=== PATIENT | female | born 1975 | race Hispanic/Latino ===

== ENCOUNTER 2019-12-23 04:34 | Emergency (ER) | payer MEDICARE, OTHER ==
[2019-12-23 05:57] LABS: Hematocrit 35.6 % (30.3-42.9); Hemoglobin 12.2 gm/dl (10.1-14.3); Mean Corpuscular HGB Conc 34 % (30-34); Mean Corpuscular Volume 89 fl (79-97); Platelet Count 269 K/mm3 (140-440); Red Blood Count 3.99 M/mm3 (3.65-5.03); Red Cell Distribution Width 14.3 % (13.2-15.2)
[2019-12-23 06:14] LABS: BUN/Creatinine Ratio 11; Blood Urea Nitrogen 8 mg/dL (7-17); Calcium 8.6 mg/dL (8.4-10.2); Hemolysis Index 5
[2019-12-23 07:03] LABS: Anisocytosis Few; Basophils % (Manual) 0 % (0.0-1.8); Platelet Estimate Consistent w Auto; Schistocytes Rare; Total Cells Counted 100
[2019-12-23 08:08] LABS: Bilirubin,Urine NEG (Negative); Blood,Urine NEG (Negative); Color,Urine Yellow (Yellow); Mucus,Urine 3+ /HPF; Protein,Urine <15 mg/dL mg/dL (Negative)
[2019-12-23 08:09] LABS: HCG Qualitative,Urine Negative (Negative)
[2019-12-23 08:14] LABS: Amphetamine Screen,Urine PRESUMPTIVE NEGATIVE; Benzodiazepines Screen,Urine PRESUMPTIVE NEGATIVE; Cannabinoid Screen,Urine PRESUMPTIVE NEGATIVE; Cocaine Screen,Urine PRESUMPTIVE NEGATIVE; Methadone Screen,Urine PRESUMPTIVE NEGATIVE; Opiate Screen,Urine PRESUMPTIVE NEGATIVE
[2019-12-23 08:47] VITALS: BP 112/67
== END 2019-12-23 12:42 | disposition home or self-care (01) ==
LOC: ED 04:34
DX: F41.0 Panic disorder [episodic paroxysmal anxiety] (principal); F43.10 Post-traumatic stress disorder, unspecified; F20.9 Schizophrenia, unspecified; F31.9 Bipolar disorder, unspecified; F17.200 Nicotine dependence, unspecified, uncomplicated
CPT/HCPCS: 36415; 80048; 80307; 80320; 81001; 81025; 85007; 85025; 99284; G0480

== ENCOUNTER 2020-01-10 18:56 | Emergency (ER) | payer SELFPAY ==
[2020-01-10] MEDS ORDERED: ZIPRASIDONE MESYLATE 20 MG VIAL IM ONE ×3 (18:58→20:35)
[2020-01-10] MEDS ORDERED: WATER FOR INJ Sterile (PF) 10 ML ONE (18:59)
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
[2020-01-10 20:41] LABS: Basophils # (Auto) 0.1 K/mm3 (0.0-0.1); Basophils % (Auto) 0.8 % (0.0-1.8); Eosinophils # (Auto) 0.2 K/mm3 (0.0-0.4); Eosinophils % (Auto) 2.8 % (0.0-4.3); Hematocrit 38.9 % (30.3-42.9); Hemoglobin 12.7 gm/dl (10.1-14.3); Lymphocytes # (Auto) 1.7 K/mm3 (1.2-5.4); Lymphocytes % (Auto) 26.2 % (13.4-35.0); Mean Corpuscular HGB Conc 33 % (30-34); Mean Corpuscular Volume 91 fl (79-97); Monocytes # (Auto) 0.7 K/mm3 (0.0-0.8); Monocytes % (Auto) 11.2 % (0.0-7.3); Platelet Count 229 K/mm3 (140-440); Red Blood Count 4.29 M/mm3 (3.65-5.03); Red Cell Distribution Width 13.6 % (13.2-15.2)
[2020-01-10 21:00] LABS: BUN/Creatinine Ratio 20; Blood Urea Nitrogen 14 mg/dL (7-17); Calcium 8.7 mg/dL (8.4-10.2); Hemolysis Index 10
[2020-01-10 21:01] LABS: Bacteria,Urine 1+ /HPF (Negative); Bilirubin,Urine NEG (Negative); Blood,Urine NEG (Negative); Color,Urine Yellow (Yellow); Mucus,Urine 3+ /HPF; Protein,Urine <15 mg/dL mg/dL (Negative); Urobilinogen,Urine < 2.0 mg/dL (<2.0)
[2020-01-10 21:04] LABS: Benzodiazepines Screen,Urine PRESUMPTIVE NEGATIVE; Cocaine Screen,Urine PRESUMPTIVE NEGATIVE; Methadone Screen,Urine PRESUMPTIVE NEGATIVE; Opiate Screen,Urine PRESUMPTIVE NEGATIVE
[2020-01-10 21:16] LABS: Amphetamine Screen,Urine PRESUMPTIVE POSITIVE; Cannabinoid Screen,Urine PRESUMPTIVE POSITIVE
[2020-01-11] MEDS ORDERED: WATER FOR INJ Sterile (PF) 10 ML ONE ×2 (00:39→15:24)
[2020-01-11] MEDS: ZIPRASIDONE MESYLATE 20 MG VIAL IM PRN ×2 (00:46→07:06)
[2020-01-11] MEDS ORDERED: ZIPRASIDONE MESYLATE 20 MG VIAL IM ONE ×2 (07:02→15:19)
[2020-01-11] MEDS ORDERED: diphenhydrAMINE 50 MG/ML VIAL IM PRN ×2 (12:43→23:53)
[2020-01-11] MEDS ORDERED: LORazepam 2 MG/ML VIAL IM PRN (23:53)
[2020-01-11] MEDS ORDERED: HALOPERIDOL LACTATE 5 MG/1 ML INJ IM PRN (23:53)
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
[2020-01-12] MEDS ORDERED: MELATONIN 5 MG TAB PO PRN (15:36)
[2020-01-12] MEDS ORDERED: traZODone 50 MG TAB PO ONE ×2 (15:36→19:36)
[2020-01-12] MEDS: VALPROIC ACID 250 MG CAP PO SCH ×2 (18:56→21:30)
[2020-01-12] MEDS: OMEGA-3 FATTY ACIDS/FISH OIL 1 GRAM CAP PO SCH ×2 (19:50→21:30)
[2020-01-13 07:41] VITALS: BP 101/58
[2020-01-13] MEDS: OMEGA-3 FATTY ACIDS/FISH OIL 1 GRAM CAP PO SCH (11:43)
[2020-01-13] MEDS: VALPROIC ACID 250 MG CAP PO SCH (11:43)
== END 2020-01-13 12:09 ==
LOC: ED 18:56 → EEVIPCON 18:56 → ED 01-13 12:09
DX: F20.89 Other schizophrenia (principal); F31.9 Bipolar disorder, unspecified; F17.200 Nicotine dependence, unspecified, uncomplicated; F12.10 Cannabis abuse, uncomplicated
CPT/HCPCS: 36415; 80048; 80307; 81001; 84703; 85025; 96372; 99285; J1200; J2060; J3486; 80320; G0480

== ENCOUNTER 2020-03-13 07:20 | Emergency (ER) | payer SELFPAY ==
--- NOTE | 2020-03-13 08:19 | Emergency Department Report ---
<RAMONE MEMBRENO - Last Filed: 03/13/20 08:20> ED Psych HPI - General Chief Complaint: Psych Stated Complaint: SUICIDAL THOUGHTS Time Seen by Provider: 03/13/20 07:52 Source: patient, EMS Mode of arrival: Stretcher - History of Present Illness Initial Comments: Patient is 44 years old female with history of schizophrenia and bipolar disorder. Patient brought to the emergency room via EMS for evaluation of suicidal ideation. Patient stated that she is feeling depressed and she is having thoughts of killing herself by overdosing on Tylenol PM. Patient currently denying any homicidal ideation. Patient also denied any visual or auditory hallucination. Patient looks very depressed with poor eye contact. MD Complaint: suicidal ideation, feels depressed -: days(s) Associated Psychiatric Symptoms: depression, suicidal ideation If Self Harm: admits thoughts of, has plan, intentional overdose - Related Data Home Medications Medication Instructions Recorded Confirmed Last Taken Adderall 01/11/20 Unknown [place] 01/11/20 Unknown Mirtazapine 01/11/20 Unknown Allergies Allergy/AdvReac Type Severity Reaction Status Date / Time No Known Allergies Allergy Unverified 12/23/19 04:42 ED Review of Systems Comment: All other systems reviewed and negative Constitutional: denies: chills, fever Respiratory: denies: cough, shortness of breath, SOB with exertion, SOB at rest, wheezing Cardiovascular: denies: chest pain, palpitations Gastrointestinal: denies: abdominal pain, nausea, vomiting, diarrhea, constipation, hematemesis, melena, hematochezia Skin: denies: lesions Neurological: denies: headache, weakness ED Past Medical Hx - Past Medical History Previous Medical History?: Yes Hx Pulmonary Embolism: Yes (bipolar and schizophrenia) Additional medical history: sciatica. PTSD - Surgical History Past Surgical History?: Yes Hx Appendectomy: Yes - Social History Smoking Status: Current Every Day Smoker Substance Use Type: Alcohol, Methamphetamines - Medications Home Medications: Home Medications Medication Instructions Recorded Confirmed Last Taken Type Adderall 01/11/20 Unknown History [place] 01/11/20 Unknown History Mirtazapine 01/11/20 Unknown History ED Physical Exam - General Limitations: No Limitations General appearance: alert, in no apparent distress - Head Head exam: Present: atraumatic, normocephalic, normal inspection - Eye Eye exam: Present: normal appearance, PERRL - ENT ENT exam: Present: normal exam, normal orophraynx, mucous membranes moist - Neck Neck exam: Present: normal inspection, full ROM. Absent: tenderness, meningismus - Respiratory Respiratory exam: Present: normal lung sounds bilaterally - Cardiovascular Cardiovascular Exam: Present: regular rate, normal rhythm, normal heart sounds - GI/Abdominal GI/Abdominal exam: Present: soft, normal bowel sounds. Absent: distended, tenderness, guarding, rebound, rigid, organomegaly, mass, bruit, pulsatile mass, hernia - Extremities Exam Extremities exam: Present: normal inspection, full ROM, normal capillary refill. Absent: calf tenderness - Back Exam Back exam: Present: normal inspection, full ROM. Absent: CVA tenderness (R), CVA tenderness (L) - Neurological Exam Neurological exam: Present: alert, oriented X3, CN II-XII intact, normal gait, reflexes normal. Absent: motor sensory deficit - Psychiatric Psychiatric exam: Present: depressed, suicidal ideation. Absent: agitated, anxious, flat affect, manic, homicidal ideation - Skin Skin exam: Present: warm, intact, normal color ED Disposition Clinical Impression: Suicidal ideation, Paranoid schizophrenia Disposition: DC-01 TO HOME OR SELFCARE Condition: Stable Additional Instructions: dc to [facility]-psych unit Referrals: PRIMARY CARE, [Primary Care Provider] - 3-5 Days <JOSE STEWART - Last Filed: 03/14/20 13:32> ED Review of Systems ROS: Stated complaint: SUICIDAL THOUGHTS Other details as noted in HPI ED Course Vital Signs 03/13/20 03/13/20 03/13/20 07:49 09:51 19:00 Temperature 99.2 F 99.5 F 98.1 F Pulse Rate 83 103 H 92 H Respiratory 18 17 18 Rate Blood Pressure 110/58 Blood Pressure 110/74 120/65 [Left] O2 Sat by Pulse 98 98 97 Oximetry 03/13/20 03/14/20 03/14/20 20:00 02:00 08:51 Temperature 98.2 F 99.0 F Pulse Rate 97 H 98 H Respiratory 18 18 18 Rate Blood Pressure Blood Pressure 119/67 114/74 [Left] O2 Sat by Pulse 97 99 Oximetry ED Medical Decision Making - Lab Data Result diagrams: 03/13/20 08:06 03/13/20 08:06 - Medical Decision Making Patient is been medically cleared at this time. Patient is been accepted to our [facility] psych unit. Critical care attestation.: If time is entered above; I have spent that time in minutes in the direct care o f this critically ill patient, excluding procedure time. ED Disposition Is pt being admited?: No Does the pt Need Aspirin: No Time of Disposition: 13:32
[2020-03-13 08:33] LABS: Basophils # (Auto) 0.1 K/mm3 (0.0-0.1); Basophils % (Auto) 1.3 % (0.0-1.8); Eosinophils # (Auto) 0.2 K/mm3 (0.0-0.4); Hematocrit 43.2 % (30.3-42.9); Hemoglobin 15.1 gm/dl (10.1-14.3); Lymphocytes # (Auto) 1.6 K/mm3 (1.2-5.4); Lymphocytes % (Auto) 25.2 % (13.4-35.0); Mean Corpuscular HGB Conc 35 % (30-34); Mean Corpuscular Volume 86 fl (79-97); Monocytes # (Auto) 0.6 K/mm3 (0.0-0.8); Monocytes % (Auto) 8.7 % (0.0-7.3); Platelet Count 337 K/mm3 (140-440); Red Blood Count 5.03 M/mm3 (3.65-5.03); Red Cell Distribution Width 13.1 % (13.2-15.2)
[2020-03-13 08:40] LABS: Bacteria,Urine 1+ /HPF (Negative); Bilirubin,Urine NEG (Negative); Blood,Urine NEG (Negative); Color,Urine Yellow (Yellow); Mucus,Urine FEW /HPF; Protein,Urine <15 mg/dL mg/dL (Negative); Urobilinogen,Urine < 2.0 mg/dL (<2.0)
[2020-03-13 08:45] LABS: Amphetamine Screen,Urine Negative; Benzodiazepines Screen,Urine Negative; Cannabinoid Screen,Urine Negative; Cocaine Screen,Urine Negative; Methadone Screen,Urine Negative; Opiate Screen,Urine Negative
[2020-03-13 08:46] LABS: Blood Urea Nitrogen 8 mg/dL (7-17); Hemolysis Index 4
[2020-03-13 09:07] LABS: BUN/Creatinine Ratio 11
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
[2020-03-14] MEDS ORDERED: MELATONIN 5 MG TAB PO PRN (11:09)
[2020-03-14] MEDS ORDERED: LORazepam 2 MG/ML VIAL IM ONE (11:11)
[2020-03-14] MEDS: LITHIUM CARBONATE 300 MG CAP PO SCH (13:00)
[2020-03-14] MEDS ORDERED: LORazepam 2 MG/ML VIAL ONE (17:35)
[2020-03-14] MEDS: traZODone 50 MG TAB PO SCH (21:23)
[2020-03-15] MEDS: traZODone 50 MG TAB PO SCH (07:11)
[2020-03-15] MEDS: LITHIUM CARBONATE 300 MG CAP PO SCH (09:57)
--- NOTE | 2020-03-15 12:34 | Progress Note ---
Subjective - Reason for Consult Consult date: 03/15/20 Reason for consult: SI - Chief Complaint Chief complaint: The patient's medical record was reviewed and the patient's progress was discussed with the nursing staff. The nurse note states the patient resting quietly on recliner, resp even and non labored, no acute distress noted, no s/s of self harm noted, no complaints of voiced, able to make needs known, ambulates as needed to restroom. During my interview with the patient today, she is lying down awake. She is much more calm and cooperative today. She is smiling. She is pleasant and conversational. The patient states "I laid here and thought over night." She then says "it was selfish of me to think this way and be here for this." The patient says "I thought it would make that man want me, so I was really just trying to get his attention." She says, "I feel good. My thoughts and emotions are much clearer now." She denies SI/HI. he says, "Ma'am, I'm not suicidal or homicidal at all. I have no thoughts of hurting myself." She then says, "I need my butt kicked for allowing my two girls to see me act like this." The patient denies hallucinations of any kind. She also denies any fear of feelings of endangerment. She says "I'm supposed to start a good job with good pay this morning." She says, "I'm gone see if I still have it." REVIEW OF SYSTEMS Constitutional: Negative for weight loss ENT: Negative for stridor Respiratory: Negative for cough or hemoptysis All other systems reviewed and are negative MENTAL STATUS EXAMINATION General Appearance: Dressed appropriately Behavior: Calm, cooperative. Pleasant. Good eye contact. Mood: "Good" Affect and affective range: Congruent with stated mood Speech: Normal volume, Regular rate and rhythm Thought Process: Goal directed Thought Content: Suicidal Ideation: Denies Homicidal Ideation: Denies Hallucinations: Denies Delusions: None elicited Insight and Judgment: Limited Memory/Cognition: Normal Attention: Normal, Assessment (1) Schizoaffective Disorder, Bipolar Type Current Visit: Yes Status: Acute (2) Noncompliance with medical regimen and other treatment TREATMENT PLAN D/c 1013 Scripts Trazodone 50mg po qhs Triana 300mg po daily Risks, benefits and alternatives of medications discussed with the patient, questions answered and consent obtained from patient. PSYCHOTHERAPY: Supportive psychotherapy provided MEDICAL: Per primary team DELIRIUM PRECAUTIONS: Please re-orient patient frequently, keep lights on during the day, and minimize benzodiazepines and opiates as these medications could worsen patient's confusion. 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 The patient understands that if suicidal thoughts or any feelings of endangerment arise she is to seek immediate assistance, including the crisis hotline, 911, and/or ER. The patient is to follow up with outpatient psychiatry in 7 to 14 days upon discharge. The telephone interceptor operator to further discuss the safety plan, and give the patient outpatient resources for outpatient psychiatry, and cognitive behavioral therapy. Will sign off. Thank you for the consult. Please contact with any questions and/or concerns. Mental Status Exam - Vital signs Last Vital Signs Temp 98.6 F 03/15/20 09:12 Pulse 90 03/15/20 09:12 Resp 18 03/15/20 09:12 BP 101/66 03/15/20 09:12 Pulse Ox 100 03/15/20 09:12
--- NOTE | 2020-03-15 14:46 | Progress Note ---
Subjective - Reason for Consult Consult date: 03/15/20 Reason for consult: SI - Chief Complaint Chief complaint: The patient's medical record was reviewed and the patient's progress was discussed with the nursing staff. During my interview with the patient today, she is lying down asleep. She is quiet and withdrawn. Her affect is flat. The patient states "I feel better today." She verbalizes being "depressed." She verbalizes feeling suicidal with no plan. The patient states, "my body still gets stuck though. It's stuck now." She denies hallucinations of any kind. REVIEW OF SYSTEMS Constitutional: Negative for weight loss ENT: Negative for stridor Respiratory: Negative for cough or hemoptysis All other systems reviewed and are negative MENTAL STATUS EXAMINATION General Appearance: Dressed appropriately Behavior: Cooperative, poor eye contact Mood: "better, depressed" Affect and affective range: Flat Speech: Normal volume, Regular rate and rhythm Thought Process: Goal directed Thought Content: Suicidal Ideation: Yes Homicidal Ideation: Denies Hallucinations: Denies Delusions: Yes Insight and Judgment: Limited Memory/Cognition: Limited Attention: Normal, Assessment (1) Schizoaffective Disorder, Bipolar Type Current Visit: Yes Status: Acute (2) Noncompliance with medical regimen and other treatment TREATMENT PLAN Continue 1013 Continue current regimen Risks, benefits and alternatives of medications discussed with the patient, questions answered and consent obtained from patient. PSYCHOTHERAPY: Supportive psychotherapy provided MEDICAL: Per primary team DELIRIUM PRECAUTIONS: Please re-orient patient frequently, keep lights on during the day, and minimize benzodiazepines and opiates as these medications could worsen patient's confusion. 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 Will continue to follow. Thank you for the consult. Please contact with any questions and/or concerns. Mental Status Exam - Vital signs Last Vital Signs Temp 98.6 F 03/15/20 09:12 Pulse 90 03/15/20 09:12 Resp 18 03/15/20 09:12 BP 101/66 03/15/20 09:12 Pulse Ox 100 03/15/20 09:12
[2020-03-15] MEDS ORDERED: LORazepam 0.5 MG TAB PO SCH (15:00)
[2020-03-15 19:41] VITALS: BP 120/54
== END 2020-03-15 19:39 | disposition home or self-care (01) ==
LOC: ED 07:20
DX: F25.0 Schizoaffective disorder, bipolar type (principal)
CPT/HCPCS: 36415; 80048; 80307; 81001; 84703; 85025; 96372; 99285; J2060; 80320; G0480